=== PATIENT | female | born 1965 | race Caucasian/White ===

== ENCOUNTER 2016-11-09 19:21 | Emergency (ER) | payer OTHER ==
[~2016-11-09] VITALS: Ht 157.5 cm; Wt 68.0 kg
[~2016-11-09 19:21] MED LIST: HYDR-700 PO; HYDR1CAP2 PO; IBP200T PO; IBP800T PO; MECL25TA56 PO; NF-CIPDEC OT; SCOP1PAT TD; VENL150T PO
--- NOTE | 2016-11-09 20:41 | ED Lower Extremity ---
General Chief Complaint: Lower Extremity Stated Complaint: RT KNEE PAIN Nursing Triage Note: pt reports she was transfering her son from a wheel chair to the bed and injured her r knee. Nursing Sepsis Screen: No Definite Risk History of Present Illness Time seen by provider: 20:30 Initial Comments Evaluation for right knee pain. She states fall transferring her son she hit her right patella directly. Onset: this afternoon Pain/Injury Location: right knee (pain anterior proximal patella) Method of Injury: direct blow Modifying Factors: Improves With Immobilization Allergies and Home Medications Allergies Coded Allergies: NKANo Known Allergies (Unverified Allergy, Mild, 07/13/09) Home Medications Ciprofloxacin HCl/Dexameth 7.5 Ml Soln, 4 DROPS OT BID, #1 Prescribed by: LAURIE ALVAREZ on 11/09/15 1717 Hydrocodone Bit/Acetaminophen 1 Each Capsule, 1-2 EACH PO Q6HR PRN, #14 Ref 0 Prescribed by: CAROLE LE on 03/03/10 0055 Hydroxyzine HCl 25 Mg Tablet, 25 MG PO, (Reported) Ibuprofen 200 Mg Tab, 200 MG PO ONCE, (Reported) Ibuprofen 800 Mg Tab, 800 MG PO TID, #90 Ref 0 Prescribed by: BIN NIEVES on 02/01/10 2349 Venlafaxine HCl 150 Mg Tab.er.24, 150 MG PO, (Reported) Constitutional: no symptoms reported, see HPI EENTM: no symptoms reported, see HPI Respiratory: no symptoms reported, see HPI Cardiovascular: no symptoms reported, see HPI Gastrointestinal: no symptoms reported, see HPI Genitourinary: no symptoms reported, see HPI Musculoskeletal: see HPI, joint pain (right knee) Skin: no symptoms reported, see HPI Psychiatric/Neurological: No Symptoms Reported, See HPI All Other Systems Reviewed Negative Unless Noted: Yes Past Tzvvwut-Eafxwa-Oeqvla Hx Patient Social History Alcohol Use: Denies Use Recreational Drug Use: No Smoking Status: Current Everyday Smoker Type Used: Cigarettes Recent Foreign Travel: No Contact w/Someone Who Travel: No Recent Infectious Disease Expo: No Seasonal Allergies Seasonal Allergies: No Surgeries HX Surgeries: Yes (knee, ankle) Surgeries: Gallbladder, Hysterectomy, Orthopedic Respiratory Hx Respiratory Disorders: No Cardiovascular Hx Cardiac Disorders: No Neurological Hx Neurological Disorders: No Reproductive System Hx Reproductive Disorders: No Genitourinary Hx Genitourinary Disorders: No Gastrointestinal Hx Gastrointestinal Disorders: No Musculoskeletal Hx Musculoskeletal Disorders: No Endocrine Hx Endocrine Disorders: No HEENT HX ENT Disorders: No Cancer Hx Cancer: Yes Cancer: Cervical, Uterine Psychosocial Hx Psychiatric Problems: No Integumentary HX Skin/Integumentary Disorder: No Blood Transfusions Hx Blood Disorders: No Reviewed Nursing Assessment Reviewed/Agree w Nursing PMH: Yes Physical Exam Vital Signs Vital Sign - Last 12Hours 11/09/16 19:42 Temp 98.1 Pulse 86 Resp 16 B/P (MAP) 124/61 Pulse Ox 99 O2 Delivery Room Air Capillary Refill : Less Than 3 Seconds General Appearance: WD/WN, no apparent distress Cardiovascular: normal peripheral pulses, regular rate, rhythm, no edema Respiratory: chest non-tender, lungs clear Knees: right knee joint effusion (small), right knee pain (proximal patella exquisitely tender to palpation.), right knee soft tissue tenderness, right knee other (no medial or lateral laxity, negative anterior and posterior drawer , negative Milvia. Able to perform a straight leg raise.) Neurologic/Psychiatric: no motor/sensory deficits, alert, normal mood/affect, oriented x 3 Skin: normal color, warm/dry Progress/Results/Core Measures Results/Orders My Orders Orders - CHUY ABDULLAHI Knee, Right, 3 Views (11/09/16 20:04) Rx-Tramadol Hcl (Rx-Ultram) (11/09/16 20:45) Medications Given in ED Current Medications Medications Dose Ordered Sig/Hortencia Route Start Time Stop Time Status Last Admin Dose Admin Tramadol HCl 50 mg ONCE ONCE PO 11/09/16 20:45 11/09/16 20:46 DC 11/09/16 20:47 50 MG Vital Signs/I&O Vital Sign - Last 12Hours 11/09/16 11/09/16 19:42 20:58 Temp 98.1 98.2 Pulse 86 90 Resp 16 16 B/P (MAP) 124/61 Pulse Ox 99 96 O2 Delivery Room Air Blood Pressure Mean: 82 Progress Note : Time: 20:30 Progress Note Reviewed x-ray results with the patient and compared with her exam, she exquisite tenderness at the anterior patella, where the x-rays do demonstrate a small avulsion fracture. Recommended a knee immobilizer for activities. Follow- up with orthopedics for returning to work. The quad tendon is intact, she can perform a straight leg raise and short arc quad. Diagnostic Imaging Diagonstic Imaging: Xray Plain Films/CT/US/NM/MRI: knee Comments NAME: TISH TINSLEY [facility] REC#: [id number] PT STATUS: REG ER : 1965 PHYSICIAN: CHUY ABDULLAHI ADMIT DATE: 11/09/16/ER Draft Date of Exam:11/09/16 KNEE, RIGHT, 3 VIEWS EXAMINATION: Right knee at 8:32 PM INDICATION: Injury, knee pain Three views were obtained. There is no fracture, dislocation or acute bony abnormality evident. As noted on the prior exam of 02/01/10 the knee joint is fairly well-maintained. In the interval since the prior study a small bony excrescence has developed along the anterior superior aspect of the patella. This could be a sequela of trauma to the attachment of the quadriceps tendon. The soft tissues are unremarkable. There is no sign of joint effusion. IMPRESSION: 1. There is no evidence for an acute bony abnormality. 2. The small bony excrescence along the anterosuperior portion of the patella could be related to interval trauma to the quadriceps tendon. If further study is desired, then MRI would be recommended. Dictated on workstation # [id number] Dict: 11/09/162031 Trans: 11/09/162044 [facility] [id number] Interpreted by: LAURA CHAPA MD Electronically signed by: Departure Impression Impression: Primary Impression: Fracture, patella Qualified Codes: S82.091A - Other fracture of right patella, initial encounter for closed fracture Disposition: HOME, SELF-CARE Condition: Stable Departure-Patient Inst. Decision time for Depature: 20:40 Referrals: CORY FLOREZ MD (PCP/Family) Primary Care Physician Patient Instructions: Patella Fracture (DC) Add. Discharge Instructions: Use knee immobilizer when ambulatory. Call Dr. Carmona's office [phone] [phone] for follow up. Ice to right knee 20 minutes every 2 hours. Return to emergency department for increased pain, new injury, or concerns. Tylenol 650 mg every 6 hours for pain and/or Ibuprofen 600 mg every 8 hours for pain. All discharge instructions reviewed with patient and/or family. Voiced understanding. Work/School Note: Work Release Form Date Seen in the Emergency Department: Nov 09, 2016 Return to Work: Nov 11, 2016 Restrictions: Need Release from Doctor CHUY ABDULLAHI Nov 09, 2016 20:41
[2016-11-09] MEDS ORDERED: RX-TRAMADOL 50 MG (ULTRAM) TAB PPK#4 PO ONE (20:45)
--- NOTE | 2016-11-09 20:45 | Diagnostic Imaging Report ---
EXAMINATION: Right knee at 8:32 PM INDICATION: Injury, knee pain Three views were obtained. There is no fracture, dislocation or acute bony abnormality evident. As noted on the prior exam of 02/01/10 the knee joint is fairly well-maintained. In the interval since the prior study a small bony excrescence has developed along the anterior superior aspect of the patella. This could be a sequela of longstanding trauma to the attachment of the quadriceps tendon. The soft tissues are unremarkable. There is no sign of joint effusion. IMPRESSION: 1. There is no evidence for an acute bony abnormality. 2. The small bony excrescence along the anterosuperior portion of the patella could be related to interval trauma to the quadriceps tendon. If further study is desired, then MRI would be recommended. Dictated by: Dictated on workstation # [id number]
[2016-11-09 20:58] VITALS: BP 120/69
== END 2016-11-09 20:58 | disposition home or self-care (01) ==
LOC: EDUNIT# 19:21 → ER 19:24
DX: S82.091A Other fracture of right patella, initial encounter for closed fracture (principal); F17.210 Nicotine dependence, cigarettes, uncomplicated; Z90.49 Acquired absence of other specified parts of digestive tract; Z90.89 Acquired absence of other organs; Z98.890 Other specified postprocedural states; Z85.41 Personal history of malignant neoplasm of cervix uteri; Z85.42 Personal history of malignant neoplasm of other parts of uterus; W18.30XA Fall on same level, unspecified, initial encounter
CPT/HCPCS: 73562; 99283

== ENCOUNTER → 2016-11-15 | Outpatient (CLI) | payer OTHER ==
--- NOTE | 2016-11-15 16:27 | Diagnostic Imaging Report ---
PROCEDURE: MRI right joint lower extremity without contrast. TECHNIQUE: Multiplanar, multisequence non contrast-enhanced MRI of the right lower extremity was accomplished. INDICATION: Right knee pain. FINDINGS: There is edema along the medial aspect of the subcutaneous tissues anteriorly medial to the level of the patellar tendon. There is also edema anterior to the patellar tendon compatible with prepatellar mild bursitis or injury. There is suggestion of low-grade intrasubstance tear within the distal quadriceps tendon and the patellar tendon. No high-grade or full-thickness tear. No retracted tear. There is a minimal amount of fluid in the suprapatellar pouch. There is a tiny Rapp's cyst. There is no significant marrow signal abnormality. The ACL and the PCL appear normal. There is an oblique increased signal line seen within the body of the lateral meniscus with questionable extension into the meniscus surface equivocal for a nondisplaced tear. The medial meniscus is intact. The lateral collateral ligament complex and the MCL are intact. There is minimal thinning of the cartilage in the medial compartment. The lateral and patellofemoral compartment cartilage appears intact. IMPRESSION: 1. There is mild soft tissue edema and increased signal within the patellar tendon and distal quadriceps tendon compatible with a low-grade sprain. 2. Questionable nondisplaced oblique tear involving the body of the lateral meniscus. The medial meniscus and the cruciate ligaments are intact. Dictated by: Dictated on workstation # [id number]
== END ==
LOC: RAD 14:36
PROVIDERS: ATTEND Nurse Practitioner Family
DX: R93.6 Abnormal findings on diagnostic imaging of limbs (principal)
CPT/HCPCS: 73721

== ENCOUNTER → 2020-03-06 | Outpatient (CLI) | payer OTHER ==
--- NOTE | 2020-03-06 10:33 | Diagnostic Imaging Report ---
PROCEDURE: MRI right joint lower extremity without contrast. TECHNIQUE: Multiplanar, multisequence non contrast-enhanced MRI of the right lower extremity was accomplished. INDICATION: Right knee pain, fell 4 days ago The previous MRI of the right knee exam of 11/15/2016 noted mild soft tissue edema about the infrapatellar tendon and the distance quadriceps tendon. There is also a question of a nondisplaced oblique tear involving the body of the lateral meniscus. On the sagittal proton densities of this exam there are vague areas of slight increased signal within the substance of both the anterior and posterior horns of the lateral meniscus. The signal abnormalities do not appear to communicate with the articular surfaces of the meniscus and consequently are more likely due to degenerative disease than to a tear. There is also a more prominent area of abnormal signal within the substance of the posterior horn of the medial meniscus. This finding is quite similar to the prior exam and may also be related to degenerative disease alone. There is no clear interruption of the inferior articular surface of the posterior horn the medial meniscus to indicate a tear. The anterior and posterior cruciate ligaments, quadriceps and infrapatellar tendons, the collateral ligaments and biceps more tendon and iliotibial band are intact. There is no sign of an injury to the medial or lateral retinaculum. There is no abnormal signal arising in osseous structures to suggest bone edema or fracture. The knee joint is fairly well-maintained although there is narrowing of the lateral aspect of the patellofemoral space. The coronal STIR series does show increased signal in the soft tissues along the anteromedial aspect of the knee joint. This does suggest mild edema/inflammation. There is no evidence for a joint effusion or for Rapp's cyst. IMPRESSION: 1. The areas of altered signal within the menisci are more likely due to degenerative disease than to a tear. 2. The major ligaments and tendons are intact. 3. There is no sign of an acute bony abnormality and the knee joint is fairly well-maintained. There is narrowing of the lateral aspect of the patellofemoral space 4. There is no sign of a joint effusion or of a Arpp's cyst. 5. There is mild soft tissue edema along the anteromedial aspect of the knee joint. Dictated by: Dictated on workstation # [id number]
== END ==
LOC: RAD 09:01
PROVIDERS: ATTEND Nurse Practitioner Family
DX: Z04.2 Encounter for examination and observation following work accident (principal); Z02.89 Encounter for other administrative examinations; S83.8X1A Sprain of other specified parts of right knee, initial encounter; S63.591A Other specified sprain of right wrist, initial encounter; M17.11 Unilateral primary osteoarthritis, right knee; W19.XXXA Unspecified fall, initial encounter
CPT/HCPCS: 73721

== ENCOUNTER 2020-09-22 17:03 | Emergency (ER) | payer SELFPAY ==
[~2020-09-22] VITALS: Ht 157 cm; Wt 75.0 kg
[2020-09-22 17:11] VITALS: BP 120/65
--- NOTE | 2020-09-22 17:27 | ED EENT ---
History of Present Illness General Chief Complaint: Ear Problems Stated Complaint: PAIN IN LEFT EAR Nursing Triage Note: PT STATES LT EAR PAIN FOR 2 WEEKS, HAS BEEN USING WAX REMOVAL OTC BUT IT'S NOT WORKING. RINGING IN EAR BUT SHE CAN HEAR. NO KNOWN CAUSE. Source: patient Exam Limitations: no limitations History of Present Illness Date Seen by Provider: September 22, 2020 Time Seen by Provider: 17:26 Initial Comments This is a well-appearing 55-year-old female who presents to the ER with complaints of left ear pain x2 weeks. States that she has attempted to relieve pain with dpln-cdd-effupek wax removal kits however has not been able to remove any wax. Has taken [id number] Tylenol ibuprofen with minimal relief. Reports muffled sounds "like a sea shell is covering my ear". No fever, chills, cough, shortness of breath, nausea, vomiting, diarrhea. Allergies and Home Medications Allergies Coded Allergies: NKANo Known Allergies (Unverified Allergy, Mild, 07/13/09) Home Medications Amoxicillin/Potassium Clav 1 Each Tablet, 1 EACH PO BID Prescribed by: IRAJ MATSON on 09/22/20 1743 Ciprofloxacin HCl/Dexameth 7.5 Ml Soln, 4 DROPS OT BID Prescribed by: LAURIE ALVAREZ on 11/09/15 1717 Hydrocodone Bit/Acetaminophen 1 Each Capsule, 1-2 EACH PO Q6HR PRN Prescribed by: CAROEL LE on 03/03/10 0055 Ibuprofen 200 Mg Tab, 200 MG PO ONCE, (Reported) Ibuprofen 800 Mg Tab, 800 MG PO TID Prescribed by: BIN NIEVES on 02/01/10 6539 Patient Home Medication List Home Medication List Reviewed: Yes Review of Systems Review of Systems Constitutional: no symptoms reported Eyes: No Symptoms Reported Ears: See HPI Nose: no symptoms reported Mouth: no symptoms reported Throat: no symptoms reported Respiratory: no symptoms reported Cardiovascular: no symptoms reported Musculoskeletal: no symptoms reported Skin: no symptoms reported Neurological: No Symptoms Reported Hematologic/Lymphatic: No Symptoms Reported Immunological/Allergic: no symptoms reported Past Ceqneqo-Lqoeku-Imugsg Hx Patient Social History Alcohol Use: Denies Use Smoking Status: Current Everyday Smoker Type Used: Cigarettes Recent Infectious Disease Expo: No Recent Hopitalizations: No Seasonal Allergies Seasonal Allergies: No Past Medical History Surgeries: Yes (knee, ankle) Gallbladder, Hysterectomy, Orthopedic Respiratory: No Cardiac: No Neurological: No : No 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 oz. 68.488125gh; 30.00 BMI Method:Stated General Appearance: WD/WN, no apparent distress Eyes: bilateral eye normal inspection, bilateral eye EOMI Ears: right ear TM normal; left ear tenderness, left ear TM bulging, left ear other (unable to visualize land quintana); bilateral ear auricle normal, bilateral ear canal normal Nose: normal inspection Mouth/Throat: normal mouth inspection, pharynx normal Neck: full range of motion, normal inspection Cardiovascular: regular rate, rhythm, no murmur Respiratory: lungs clear, normal breath sounds Gastrointestinal: normal bowel sounds, non tender, soft Neurologic/Psychiatric: no motor/sensory deficits, alert, normal mood/affect, oriented x 3 Skin: normal color, warm/dry Progress/Results/Core Measures Results/Orders My Orders Orders - IRAJ MATSON APRN Ketorolac Injection (Toradol Injection) (09/22/20 17:45) Medications Given in ED Current Medications Medications Dose Ordered Sig/Hortencia Route Start Time Stop Time Status Last Admin Dose Admin Ketorolac Tromethamine 60 mg ONCE ONCE IM 09/22/20 17:45 09/22/20 17:46 DC 09/22/20 17:45 60 MG Vital Signs/I&O 09/22/20 09/22/20 17:11 17:45 Temp 36.8 36.8 Pulse 79 Resp 18 B/P (MAP) 120/65 (83) Pulse Ox 98 O2 Delivery Room Air Blood Pressure Mean: 83 Progress Progress Note : Progress Note Examined and in no acute distress. Discussed not putting anything into the ear to avoid rupture of her TM. Will prescribe Augmentin PO BID x 10 days. Given dose of Toradol IM for pain prior to discharge. Reviewed discharge POC and she is agreeable with plan. Departure Impression Primary Impression: Infective left otitis media Disposition: 01 HOME, SELF-CARE Condition: Improved Departure-Patient Inst. Decision time for Depature: 17:35 Referrals: CORY FLOREZ MD (PCP/Family) Primary Care Physician Add. Discharge Instructions: Plan: 1. Discharge home. Avoid putting anything into your ear. 2. Take Augmentin twice a day as directed and complete full course. 3. Follow up with your primary care provider to ensure resolution of your infection. 4. May take Tylenol or Ibuprofen as needed for pain per package insert. 5. Return for any new or worsening symptoms. All discharge instructions reviewed with patient and/or family. Voiced understanding. Scripts Amoxicillin/Potassium Clav (Augmentin 875-125 Tablet) 1 Each Tablet 1 EACH PO BID for 10 Days, #20 TAB 0 Refills Prov: IRAJ MATSON INSURANCE COLLECTOR 09/22/20 IRAJ MATSON INSURANCE COLLECTOR September 22, 2020 17:27
[2020-09-22] MEDS ORDERED: AMOX-358 PO (17:43)
[2020-09-22] MEDS ORDERED: KETOROLAC 60 MG/2 ML VIAL IM ONE (17:45)
== END 2020-09-22 18:10 | disposition home or self-care (01) ==
LOC: EDUNIT# 17:03 → ER 17:05
DX: H66.92 Otitis media, unspecified, left ear (principal); F17.210 Nicotine dependence, cigarettes, uncomplicated
CPT/HCPCS: 99284